=== PATIENT | female | born 2000 | race African-American/Black ===

== ENCOUNTER 2023-04-18 11:10 | Inpatient (IN) | payer MEDICAID, OTHER ==
[~2023-04-18] VITALS: Ht 165.1 cm; Wt 84.9 kg
[2023-04-18 12:33] LABS: BASOPHILS % (AUTO) 0.6 % (0.0-2.0); EOSINOPHILS % (AUTO) 0.3 % (1.0-6.0); HEMATOCRIT 39.7 % (36-46); HEMOGLOBIN 12.9 g/dL (12.0-16.0); LYMPHOCYTES # (AUTO) 1.3 K/uL (1.0-4.8); LYMPHOCYTES % (AUTO) 11.4 % (22.0-44.0); MEAN CORPUSCULAR HEMOGLOBIN 27.9 pg (26.0-34.0); MEAN CORPUSCULAR HGB CONC 32.4 G/dL (31.0-37.0); MEAN CORPUSCULAR VOLUME 86 fL (80-100); MONOCYTES # (AUTO) 1.2 K/uL (0.1-1.0); MONOCYTES % (AUTO) 10.4 % (2.0-9.0); NEUTROPHILS # (AUTO) 9.2 K/uL (1.8-7.7); NEUTROPHILS % (AUTO) 77.3 % (40.0-70.0); PLATELET COUNT (AUTO) 310 K/uL (150-450); RED BLOOD CELL COUNT(AUTO) 4.62 MIL/uL (4.00-5.20); RED CELL DISTRIBUTION WIDTH 13.7 % (11.5-14.5)
[2023-04-18 12:41] LABS: AMPHET/METH SCREEN,URINE POSITIVE (NEGATIVE); BARBITURATE SCREEN, URINE NEGATIVE (NEGATIVE); BENZODIAZEPINES SCREEN,URINE POSITIVE (NEGATIVE); CANNABINOID SCREEN,URINE POSITIVE (NEGATIVE); COCAINE SCREEN,URINE NEGATIVE (NEGATIVE); METHADONE SCREEN, URINE NEGATIVE (NEGATIVE); OPIATE SCREEN,URINE NEGATIVE (NEGATIVE); PHENCYCLIDINE SCREEN,URINE NEGATIVE (NEGATIVE)
[2023-04-18 12:41] LABS: ANION GAP 13 mmol/L (8-16); CALCIUM, TOTAL 8.7 mg/dL (8.8-10.5); CARBON DIOXIDE 22 mmol/L (22-29); CHLORIDE 105 mmol/L (98-107); GLOMERULAR FILTR. RATE CALC > 60 mL/min (>60); GLUCOSE,RANDOM 78 mg/dL (70-110); POTASSIUM 3.4 mmol/L (3.5-5.1); SODIUM SERUM 140 mmol/L (136-145)
[2023-04-18 12:47] LABS: ALANINE AMINOTRANSFERASE 26 U/L (12-78); ALBUMIN 3.5 g/dL (3.4-5.0); ALKALINE PHOSPHATASE 80 U/L (46-116); ASPARTATE AMINOTRANSFERASE 34 U/L (15-37); BILIRUBIN,TOTAL 1.8 mg/dL (0.1-1.0); TOTAL PROTEIN, SERUM 6.7 g/dL (6.4-8.2)
[2023-04-18] MEDS ORDERED: DiphenhydrAMINE HCL 50 MG/ML VIAL IM ONE (13:45)
[2023-04-18] MEDS ORDERED: HALOPERIDOL LACTATE 5 MG/ML VIAL IM ONE (13:45)
[2023-04-18 14:11] LABS: COVID AG,FIA SOURCE NASAL SWAB
[2023-04-18] MEDS ORDERED: ZOLPIDEM TARTRATE 10 MG TABLET PO PRN (14:30)
[2023-04-18 23:29] VITALS: BP 129/74; PULSE 97; RESP 18; TEMP 98.1; O2SAT 98
[2023-04-19] MEDS: LORazepam 2 MG TABLET PO PRN ×2 (04:34→20:27)
[2023-04-19] MEDS ORDERED: MAGNESIUM HYDROXIDE SUSPENSION 30 ML UDCUP PO PRN (08:30)
[2023-04-19] MEDS ORDERED: OMEPRAZOLE 20 MG CAPSULE PO PRN (08:30)
[2023-04-19] MEDS ORDERED: PETROLATUM,WHITE 28 GM JELLY TP PRN (08:30)
[2023-04-19] MEDS ORDERED: IBUPROFEN 600 MG TABLET PO PRN (08:30)
[2023-04-19] MEDS ORDERED: LOPERAMIDE HCL 2 MG CAPSULE PO PRN (08:30)
[2023-04-19] MEDS ORDERED: MAG HYDROX/AL HYDROX/SIMETH ES 30 ML SUSPENSION UDCUP PO PRN (08:30)
[2023-04-19] MEDS ORDERED: ACETAMINOPHEN 325 MG TABLET PO PRN (08:30)
[2023-04-19] MEDS ORDERED: DOCUSATE SODIUM 100 MG CAPSULE PO PRN (08:30)
[2023-04-19] MEDS ORDERED: ALBUTEROL SULFATE HFA 90 MCG/PUFF 8 GM INHALER IH PRN (08:30)
[2023-04-19] MEDS ORDERED: CloNIDine HCL 0.1 MG TABLET PO PRN (08:30)
[2023-04-19] MEDS ORDERED: BENZOCAINE/MENTHOL LOZENGE PO PRN (08:30)
[2023-04-19] MEDS ORDERED: POTASSIUM CHLORIDE 20 MEQ ER TABLET PO ONE (08:30)
[2023-04-19] MEDS ORDERED: ONDANSETRON HCL 4 MG TABLET PO PRN (08:30)
[2023-04-19] MEDS ORDERED: BACITRACIN 28 GM OINTMENT TP PRN (08:30)
[2023-04-19 09:37] VITALS: BP 135/76; PULSE 93; RESP 20; TEMP 97.6; O2SAT 96
[2023-04-19] MEDS: RisperiDONE 2 MG TABLET PO SCH (17:29)
[2023-04-19 20:36] VITALS: BP 115/71; PULSE 84; RESP 18; TEMP 98.2; O2SAT 97
[2023-04-20] MEDS: RisperiDONE 2 MG TABLET PO SCH ×2 (08:19→16:29)
[2023-04-20 14:10] VITALS: BP 110/81; PULSE 85; RESP 18; TEMP 98; O2SAT 99
[2023-04-20 21:33] VITALS: BP 118/79; PULSE 92; RESP 18; TEMP 98; O2SAT 99
[2023-04-21 08:40] VITALS: RESP 18
[2023-04-21] MEDS: RisperiDONE 2 MG TABLET PO SCH ×2 (09:03→16:06)
[2023-04-21] MEDS: LORazepam 2 MG TABLET PO PRN (15:47)
[2023-04-21 20:08] VITALS: BP 141/81; PULSE 80; RESP 18; TEMP 98.1; O2SAT 98
[2023-04-22] MEDS: LORazepam 2 MG TABLET PO PRN (08:23)
[2023-04-22] MEDS: HALOPERIDOL 5 MG TABLET PO PRN (08:23)
[2023-04-22] MEDS: RisperiDONE 2 MG TABLET PO SCH ×2 (08:23→16:09)
[2023-04-22 08:29] VITALS: BP 136/81; RESP 18; TEMP 98; O2SAT 98
[2023-04-22 20:11] VITALS: BP 128/78; PULSE 84; RESP 18; TEMP 97.9; O2SAT 98
[2023-04-23 08:28] VITALS: RESP 18
[2023-04-23] MEDS: RisperiDONE 2 MG TABLET PO SCH ×2 (08:30→16:05)
[2023-04-23] MEDS: LORazepam 2 MG TABLET PO PRN (16:05)
[2023-04-23 20:32] VITALS: BP 118/73; PULSE 90; RESP 17; TEMP 98.2; O2SAT 97
[2023-04-24] MEDS: LORazepam 2 MG TABLET PO PRN (08:25)
[2023-04-24] MEDS: RisperiDONE 2 MG TABLET PO SCH ×2 (08:25→16:18)
[2023-04-24 08:34] VITALS: RESP 18
[2023-04-24 20:15] VITALS: BP 108/60; PULSE 92; RESP 18; TEMP 97.6
[2023-04-25 08:25] VITALS: BP 96/60; PULSE 93; RESP 17; TEMP 97.9
[2023-04-25] MEDS: RisperiDONE 2 MG TABLET PO SCH ×2 (09:13→17:56)
[2023-04-25 21:12] VITALS: BP 111/62; PULSE 88; RESP 18; TEMP 98
[2023-04-26 08:21] VITALS: RESP 18
[2023-04-26] MEDS: RisperiDONE 2 MG TABLET PO SCH ×2 (08:26→16:23)
[2023-04-27 01:31] VITALS: RESP 18; TEMP 98.3
[2023-04-27 08:16] VITALS: BP 109/60; PULSE 77; RESP 18; TEMP 98; O2SAT 98
[2023-04-27] MEDS: RisperiDONE 2 MG TABLET PO SCH ×3 (08:55→17:23)
[2023-04-27] MEDS: LORazepam 2 MG TABLET PO PRN (08:55)
[2023-04-27] MEDS: HALOPERIDOL 5 MG TABLET PO PRN (08:55)
[2023-04-27 20:35] VITALS: BP 127/85; PULSE 100; RESP 19; TEMP 97.8; O2SAT 98
[2023-04-28] MEDS: RisperiDONE 2 MG TABLET PO SCH ×2 (08:20→16:16)
[2023-04-28 08:24] VITALS: BP 112/69; PULSE 82; RESP 18; TEMP 97.7; O2SAT 96
[2023-04-28 20:35] VITALS: BP 121/65; PULSE 100; RESP 19; TEMP 97.6; O2SAT 95
[2023-04-29 08:51] VITALS: BP 109/65; PULSE 92; RESP 17; TEMP 97.5; O2SAT 96
[2023-04-29] MEDS: RisperiDONE 2 MG TABLET PO SCH ×2 (09:46→16:45)
[2023-04-30 07:15] VITALS: RESP 18
[2023-04-30 08:32] VITALS: BP 127/82; PULSE 89; RESP 18; TEMP 97.5; O2SAT 100
[2023-04-30] MEDS: RisperiDONE 2 MG TABLET PO SCH (09:10)
[2023-04-30] MEDS ORDERED: RISP2TAB86 PO (13:59)
[2023-04-30 14:41] LABS: GLUCOMETER DEV NAME(LOC) POC.BV
== END 2023-04-30 15:30 | disposition home or self-care (01) | DRG 750 ==
LOC: EMS 11:10 → B3A 18:46 → B2S 04-28 21:07
PROVIDERS: ADMIT Psychiatry & Neurology Psychiatry; ATTEND Psychiatry & Neurology Psychiatry
DX: F25.9 Schizoaffective disorder, unspecified (principal); F10.90 Alcohol use, unspecified, uncomplicated; F41.9 Anxiety disorder, unspecified; G47.00 Insomnia, unspecified; Z20.822 Contact with and (suspected) exposure to COVID-19; K59.00 Constipation, unspecified; F17.200 Nicotine dependence, unspecified, uncomplicated
CPT/HCPCS: 80053; 80307; 85025; 99291; G0480; J1200; J1630